=== PATIENT | female | born 1945 | race Caucasian/White ===

== ENCOUNTER → 2016-10-27 | Outpatient (CLI) | payer MEDICARE | END | disposition home or self-care (01) | LOC: CFH 07:30 | PROVIDERS: ATTEND Nurse Practitioner | DX: Z12.31 Encounter for screening mammogram for malignant neoplasm of breast (principal); Z13.820 Encounter for screening for osteoporosis; M89.9 Disorder of bone, unspecified; N95.8 Other specified menopausal and perimenopausal disorders | CPT/HCPCS: 77080; G0202 ==

== ENCOUNTER 2019-04-23 10:46 | Inpatient (IN) | payer MEDICARE ==
[~2019-04-23] VITALS: Ht 160 cm; Wt 84.4 kg
[2019-04-23] MEDS ORDERED: MORPHINE SULFATE 4 MG/ML, 1ML IVPush PRN ×2 (11:30→15:00)
[2019-04-23] MEDS ORDERED: ONDANSETRON 2MG/ML, 2ML IVPush ONE (11:30)
[2019-04-23] MEDS ORDERED: SODIUM CHLORIDE FLUSH 10ML SYR IVF ONE (11:30)
--- NOTE | 2019-04-23 11:33 | NUR ---
PT WITH C/O ABD PAIN RLQ/MID ABD. PAIN HAS BEEN PRESENT FOR 4 DAYS NOW RATED 4-5/10. PT DESCRIBES DIFFIUCULTY WITH URINATING WHICH BEGAN TODAY. PT DENIES N/V/D. NO CP, SOB. DID AMBULATE PT TO BR IN ATTEMPT TO OBTAIN UA, PT UNABLE TO PROVIDE. ERMD IN TO EVAL PT, AWAITING ORDERS
[2019-04-23] MEDS ORDERED: ONDANSETRON 2MG/ML, 2ML ONE ×2 (11:47→16:50)
[2019-04-23] MEDS ORDERED: MORPHINE SULFATE 4 MG/ML, 1ML ONE (11:48)
--- NOTE | 2019-04-23 11:52 | NUR ---
PIV INITIATED, PT MEDICATED PER MAR
[2019-04-23 11:59] LABS: BASOPHILS # (AUTO) 0.01 x10^3/uL (0-0.1); BASOPHILS % (AUTO) 0 % (0-1); EOSINOPHILS % (AUTO) 0 % (1-7); LYMPHOCYTES # (AUTO) 0.87 x10^3/uL (1-3.4); LYMPHOCYTES % (AUTO) 11 % (22-44); MD NO; MEAN CORPUSCULAR HEMOGLOBIN 30.4 pg (27.0-34.8); MEAN CORPUSCULAR HGB CONC 33.3 g/dL (32.4-35.8); MEAN CORPUSCULAR VOLUME 91.5 fL (80-100); MEAN PLATELET VOLUME 8.3 fL (7.4-10.4); MONOCYTES # (AUTO) 0.22 x10^3/uL (0.2-0.8); MONOCYTES % (AUTO) 3 % (2-9); NEUTROPHILS # (AUTO) 6.84 x10^3/uL (1.8-6.8); NEUTROPHILS % (AUTO) 86 % (42-75); PLATELET COUNT 245 x10^3/uL (130-400); RED BLOOD COUNT 5.06 x10^6/uL (3.82-5.3); RED CELL DISTRIBUTION WIDTH 13.3 % (9.6-15.2)
[2019-04-23 12:13] LABS: CHLORIDE 98 mmol/L (98-107)
[2019-04-23 12:29] LABS: ALANINE AMINOTRANSFERASE 20 U/L (12-78); ALBUMIN 3.7 g/dL (3.4-5.0); ALKALINE PHOSPHATASE 67 U/L (45-117); ANION GAP 11 mmol/L (5-15); BILIRUBIN,TOTAL 1.3 mg/dL (0.2-1.0); CALCIUM 9.2 mg/dL (8.5-10.1); CREATININE 1.67 mg/dL (0.55-1.02)
--- NOTE | 2019-04-23 12:35 | NUR ---
PT AMBULATED TO BR IN SECOND ATTEMPT TO COLLECT UA
[2019-04-23] MEDS: SODIUM CHLORIDE 0.9% 1,000 ML IV ONE ×2 (12:42→13:27)
--- NOTE | 2019-04-23 12:42 | NUR ---
BREAK RN: PT UNABLE TO VOID AFTER 2ND ATTEMPT- DR CESILIA STAFFORD, PT BACK TO [facility] A[facility]KE [facility] COMFORT[facility], RESPONDS APPROP TO [facility], NO NEEDS AT THIS TIME, CALL IGHT WITHIN REACH, PT TO CT PER DR CESILIA MENG. Addendum: 04/23/19 at 1249 by JEANNIE BREAK RN: PT UNABLE TO VOID AFTER 2ND ATTEMPT- DR CESILIA STAFFORD, PT BACK TO [facility] AWAKE & COMFORTABLE, RESPONDS APPROP TO [facility], NO NEEDS AT THIS TIME, CALL LIGHT WITHIN REACH, PT TO CT PER DR CESILIA MENG.
[2019-04-23] MEDS ORDERED: SODIUM CHLORIDE 0.9% 1,000ML IVBOLUS ONE (13:00)
--- NOTE | 2019-04-23 13:28 | NUR ---
PT MEDICATED PER MAR, VSS, NAD NOTED. PT DENIES NEEDS AT THIS TIME
[2019-04-23] MEDS ORDERED: SODIUM CHLORIDE 0.9% 1,000 ML IV ONE (13:45)
[2019-04-23] MEDS ORDERED: OMNIPAQUE 350 MG/ML, 100ML BOTTLE ONE (13:45)
--- NOTE | 2019-04-23 13:53 | NUR ---
PREPARING TO STRAIGHT CATH PT, ERMD IN TO UPDATE ON POC. PLAN FOR PT TO GO TO OR. WILL HOLD OFF ON STRAIGT CATH, BLADDER SCAN PERFORMED 174ML IN BLADDER, WILL UPDATE
[2019-04-23] MEDS ORDERED: SODIUM CHLORIDE 0.9% 1,000 ML IV SCH (14:00)
[2019-04-23] MEDS ORDERED: CEFOTETAN PMX 2GM/50ML 50 ML IVPB ONE (14:00)
--- NOTE | 2019-04-23 14:21 | NUR ---
dr johnson spoke with dr cardona
--- NOTE | 2019-04-23 14:29 | NUR ---
ADMITTING MD IN TO [facility] RETANA.
[2019-04-23] MEDS: SODIUM CHLORIDE 0.9% 1,000 ML IV SCH (14:34)
[2019-04-23] MEDS ORDERED: CEFOTETAN PMX 2GM/50ML 50 ML IV SCH (15:00)
[2019-04-23] MEDS ORDERED: PHARMACY MAY ADJ FOR RENAL FX MC PRN ×2 (15:00→18:30)
--- NOTE | 2019-04-23 15:40 | NUR ---
PT UNSURE OF MEDICATION DOSAGES, NOT ABLE TO COMPLETE MED REC
--- NOTE | 2019-04-23 16:00 | NUR ---
REPORT TO ISSUE CLERK, REPORT TO FLOOR RN RHYS
[2019-04-23] MEDS ORDERED: BUPIVACAINE/PF 0.5% ONE (16:26)
[2019-04-23] MEDS ORDERED: FENTANYL PF 250 MCG/5ML ONE (16:45)
[2019-04-23] MEDS ORDERED: ROCURONIUM 10 MG/ML,10ML ONE (16:50)
[2019-04-23] MEDS ORDERED: PROPOFOL 10 MG/ML, 20ML ONE (16:50)
[2019-04-23] MEDS ORDERED: SUGAMMADEX 200 MG/2 ML IVPush ONE (16:50)
[2019-04-23] MEDS ORDERED: DEXAMETHASONE 4 MG/ML, 1ML ONE (16:50)
[2019-04-23] MEDS ORDERED: CEFOTETAN 2 GM ONE (16:50)
[2019-04-23] MEDS ORDERED: SUCCINYLCHOLINE 20 MG/ML, 10ML ONE (16:50)
[2019-04-23] MEDS ORDERED: PROMETHAZINE 12.5 MG SUPP PR PRN (18:00)
[2019-04-23] MEDS ORDERED: LABETALOL 5MG/ML, 20ML IV PRN (18:00)
[2019-04-23] MEDS ORDERED: HALOPERIDOL 5 MG/ML IV PRN (18:00)
[2019-04-23] MEDS ORDERED: ALBUTEROL SULFATE 2.5 MG/3 ML NPPB PRN (18:00)
[2019-04-23] MEDS ORDERED: PROMETHAZINE 25 MG/ML, 1ML IV PRN (18:00)
[2019-04-23] MEDS ORDERED: ONDANSETRON 2MG/ML, 2ML IV PRN (18:00)
[2019-04-23] MEDS ORDERED: HYDROmorphone 1 MG/ML, 1ML INJ IVPush PRN (18:00)
[2019-04-23] MEDS ORDERED: OXYcodone 5 MG/5 ML ORAL.SOL UDC PO PRN (18:00)
[2019-04-23] MEDS ORDERED: ONDANSETRON ODT 8 MG PO PRN (18:00)
[2019-04-23] MEDS ORDERED: FENTANYL PF 100 MCG/2ML IV PRN (18:00)
[2019-04-23] MEDS ORDERED: MEPERIDINE/PF 25MG/ML,1ML IVPush PRN (18:00)
[2019-04-23] MEDS ORDERED: EPHEDRINE 50 MG/ML, 1ML IVPush PRN (18:00)
[2019-04-23] MEDS ORDERED: MIDAZOLAM 1 MG/ML, 2ML IV PRN (18:00)
[2019-04-23] MEDS ORDERED: hydrALAzine 20 MG/ML, 1ML IV PRN (18:00)
[2019-04-23 20:30] VITALS: BP 95/62
[2019-04-23] MEDS: PIPERACILLIN/TAZO/PMX 2.25GM 50 ML IV SCH (20:52)
[2019-04-23] MEDS: OXYcodone IR 5MG TABLET PO PRN (23:48)
[2019-04-24 01:55] VITALS: BP 88/51
[2019-04-24] MEDS: PIPERACILLIN/TAZO/PMX 2.25GM 50 ML IV SCH ×4 (02:00→21:59)
[2019-04-24] MEDS: SODIUM CHLORIDE 0.9% 1,000 ML IV SCH ×3 (02:00→21:58)
[2019-04-24 03:05] LABS: MICROSCOPIC NOT IND
[2019-04-24 03:28] LABS: CULTURE INDICATED? NO
[2019-04-24] MEDS ORDERED: SODIUM CHLORIDE 0.9%, 500ML IVBOLUS ONE (03:30)
[2019-04-24 06:18] LABS: ALBUMIN 2.1 g/dL (3.4-5.0); ANION GAP 8 mmol/L (5-15); CALCIUM 7.9 mg/dL (8.5-10.1); CHLORIDE 104 mmol/L (98-107)
[2019-04-24 06:22] LABS: BASOPHILS # (AUTO) 0.01 x10^3/uL (0-0.1); BASOPHILS % (AUTO) 0 % (0-1); EOSINOPHILS % (AUTO) 0 % (1-7); LYMPHOCYTES # (AUTO) 0.64 x10^3/uL (1-3.4); LYMPHOCYTES % (AUTO) 10 % (22-44); MD NO; MEAN CORPUSCULAR HEMOGLOBIN 30.3 pg (27.0-34.8); MEAN CORPUSCULAR HGB CONC 33.1 g/dL (32.4-35.8); MEAN CORPUSCULAR VOLUME 91.5 fL (80-100); MEAN PLATELET VOLUME 8.9 fL (7.4-10.4); MONOCYTES # (AUTO) 0.27 x10^3/uL (0.2-0.8); MONOCYTES % (AUTO) 4 % (2-9); NEUTROPHILS # (AUTO) 5.69 x10^3/uL (1.8-6.8); NEUTROPHILS % (AUTO) 86 % (42-75); PLATELET COUNT 159 x10^3/uL (130-400); RED CELL DISTRIBUTION WIDTH 13.6 % (9.6-15.2)
[2019-04-24 06:23] LABS: ALANINE AMINOTRANSFERASE 10 U/L (12-78); ALKALINE PHOSPHATASE 42 U/L (45-117); BILIRUBIN,TOTAL 0.6 mg/dL (0.2-1.0); CREATININE 0.98 mg/dL (0.55-1.02); TOTAL PROTEIN 5.6 g/dL (6.4-8.2)
[2019-04-24] MEDS ORDERED: CALCIUM GLUCONATE 4.6 MEQ in SODIUM CHLORIDE 0.9% 50 ML IV ONE (08:00)
[2019-04-24] MEDS ORDERED: POTASSIUM CHLORIDE 20 MEQ in SODIUM CHLORIDE 0.9% 250 ML IV ONE (08:00)
[2019-04-24 08:11] VITALS: BP 104/63
[2019-04-24] MEDS: MULTIVITS,STRESS FORMULA 1 TABLET PO SCH (08:58)
[2019-04-24] MEDS: ASCORBIC ACID 500 MG TABLET PO SCH ×2 (10:33→17:56)
[2019-04-24] MEDS: OXYcodone IR 5MG TABLET PO PRN ×2 (10:36→17:56)
[2019-04-24 15:09] VITALS: BP 99/63
[2019-04-24] MEDS: CHOLECALCIFEROL 400 UNITS/ML ORAL SOL PO SCH (16:30)
[2019-04-24 19:32] VITALS: BP 103/67
[2019-04-25 01:27] VITALS: BP 100/60
[2019-04-25] MEDS: PIPERACILLIN/TAZO/PMX 2.25GM 50 ML IV SCH ×3 (02:26→14:19)
[2019-04-25] MEDS: OXYcodone IR 5MG TABLET PO PRN ×2 (02:35→22:03)
[2019-04-25 06:25] LABS: BASOPHILS # (AUTO) 0.01 x10^3/uL (0-0.1); BASOPHILS % (AUTO) 0 % (0-1); EOSINOPHILS # (AUTO) 0.01 x10^3/uL (0-0.4); EOSINOPHILS % (AUTO) 0 % (1-7); LYMPHOCYTES # (AUTO) 0.98 x10^3/uL (1-3.4); LYMPHOCYTES % (AUTO) 14 % (22-44); MD NO; MEAN CORPUSCULAR HEMOGLOBIN 30.2 pg (27.0-34.8); MEAN CORPUSCULAR HGB CONC 32.9 g/dL (32.4-35.8); MEAN CORPUSCULAR VOLUME 91.7 fL (80-100); MEAN PLATELET VOLUME 8.9 fL (7.4-10.4); MONOCYTES # (AUTO) 0.42 x10^3/uL (0.2-0.8); MONOCYTES % (AUTO) 6 % (2-9); NEUTROPHILS # (AUTO) 5.56 x10^3/uL (1.8-6.8); NEUTROPHILS % (AUTO) 80 % (42-75); PLATELET COUNT 173 x10^3/uL (130-400); RED BLOOD COUNT 3.58 x10^6/uL (3.82-5.3); RED CELL DISTRIBUTION WIDTH 13.7 % (9.6-15.2)
[2019-04-25 06:26] LABS: ALBUMIN 2.1 g/dL (3.4-5.0); ANION GAP 6 mmol/L (5-15); CALCIUM 8.5 mg/dL (8.5-10.1); CHLORIDE 108 mmol/L (98-107)
[2019-04-25 06:29] LABS: CREATININE 0.62 mg/dL (0.55-1.02)
[2019-04-25 07:23] VITALS: BP 101/64
[2019-04-25] MEDS: ASCORBIC ACID 500 MG TABLET PO SCH ×2 (07:55→16:54)
[2019-04-25] MEDS: MULTIVITS,STRESS FORMULA 1 TABLET PO SCH (07:55)
[2019-04-25] MEDS: SODIUM CHLORIDE 0.9% 1,000 ML IV SCH (07:56)
[2019-04-25] MEDS ORDERED: POTASSIUM PHOSPHATE 44 MEQ in SODIUM CHLORIDE 0.9% 500 ML IV ONE (08:00)
[2019-04-25] MEDS ORDERED: POTASSIUM CHLORIDE 20 MEQ in SODIUM CHLORIDE 0.9% 250 ML IV ONE ×2 (08:00→08:08)
[2019-04-25 13:28] VITALS: BP 115/70
[2019-04-25] MEDS ORDERED: ASCO500T6 PO (16:33)
[2019-04-25] MEDS ORDERED: METR500T PO ×2 (16:33)
[2019-04-25] MEDS ORDERED: CEFU250T66 PO ×2 (16:33)
[2019-04-25] MEDS: metroNIDAZOLE 500 MG TABLET PO SCH (16:54)
[2019-04-25] MEDS: CHOLECALCIFEROL 400 UNITS/ML ORAL SOL PO SCH (16:54)
[2019-04-25 19:34] VITALS: BP 122/63
[2019-04-25] MEDS: CEFUROXIME 250 MG TABLET PO SCH (22:02)
[2019-04-26] MEDS: metroNIDAZOLE 500 MG TABLET PO SCH ×3 (01:04→16:30)
[2019-04-26 02:49] VITALS: BP 117/66
[2019-04-26] MEDS: SODIUM CHLORIDE 0.9% 1,000 ML IV SCH ×2 (04:01→12:16)
[2019-04-26 07:37] VITALS: BP 123/74
[2019-04-26] MEDS: MULTIVITS,STRESS FORMULA 1 TABLET PO SCH (07:54)
[2019-04-26] MEDS: CEFUROXIME 250 MG TABLET PO SCH ×2 (07:55→20:30)
[2019-04-26] MEDS: ASCORBIC ACID 500 MG TABLET PO SCH ×2 (07:55→16:30)
[2019-04-26] MEDS: OXYcodone IR 5MG TABLET PO PRN ×2 (12:13→20:39)
[2019-04-26 12:55] VITALS: BP 125/72
[2019-04-26] MEDS: CHOLECALCIFEROL 400 UNITS TABLET PO SCH (16:30)
[2019-04-26] MEDS: ENOXAPARIN 40 MG/0.4 ML SQ SCH (17:16)
[2019-04-26 21:17] VITALS: BP 133/84
[2019-04-27] MEDS: metroNIDAZOLE 500 MG TABLET PO SCH ×3 (00:35→17:02)
[2019-04-27 03:02] VITALS: BP 133/78
[2019-04-27 07:14] VITALS: BP 112/74
[2019-04-27] MEDS: FUROSEMIDE 20 MG/2 ML IV SCH (07:51)
[2019-04-27] MEDS: ASCORBIC ACID 500 MG TABLET PO SCH ×2 (07:51→17:02)
[2019-04-27] MEDS: CEFUROXIME 250 MG TABLET PO SCH ×2 (07:51→21:25)
[2019-04-27] MEDS: MULTIVITS,STRESS FORMULA 1 TABLET PO SCH (07:54)
[2019-04-27 08:13] LABS: ANION GAP 8 mmol/L (5-15); BASOPHILS % (AUTO) 0 % (0-1); CALCIUM 8.5 mg/dL (8.5-10.1); CHLORIDE 111 mmol/L (98-107); EOSINOPHILS # (AUTO) 0.15 x10^3/uL (0-0.4); EOSINOPHILS % (AUTO) 2 % (1-7); LYMPHOCYTES # (AUTO) 1.72 x10^3/uL (1-3.4); LYMPHOCYTES % (AUTO) 22 % (22-44); MD NO; MEAN CORPUSCULAR HEMOGLOBIN 30.1 pg (27.0-34.8); MEAN CORPUSCULAR VOLUME 91.1 fL (80-100); MEAN PLATELET VOLUME 7.8 fL (7.4-10.4); MONOCYTES # (AUTO) 0.59 x10^3/uL (0.2-0.8); MONOCYTES % (AUTO) 7 % (2-9); NEUTROPHILS # (AUTO) 5.52 x10^3/uL (1.8-6.8); NEUTROPHILS % (AUTO) 69 % (42-75); PLATELET COUNT 224 x10^3/uL (130-400); RED BLOOD COUNT 3.99 x10^6/uL (3.82-5.3); RED CELL DISTRIBUTION WIDTH 14.3 % (9.6-15.2)
[2019-04-27 08:15] LABS: CREATININE 0.54 mg/dL (0.55-1.02)
[2019-04-27 12:34] VITALS: BP 131/83
[2019-04-27] MEDS ORDERED: FUROSEMIDE 20 MG/2 ML IV ONE (14:00)
[2019-04-27] MEDS: CHOLECALCIFEROL 400 UNITS TABLET PO SCH (17:02)
[2019-04-27] MEDS: POTASSIUM CHLORIDE 20 MEQ TAB.ER.PRT PO SCH (17:02)
[2019-04-27] MEDS: ENOXAPARIN 40 MG/0.4 ML SQ SCH (17:02)
[2019-04-27 19:20] VITALS: BP 126/72
[2019-04-27] MEDS ORDERED: ACETAMINOPHEN 325 MG TABLET ONE (21:21)
[2019-04-27] MEDS: OXYcodone IR 5MG TABLET PO PRN (21:25)
[2019-04-27] MEDS ORDERED: ACETAMINOPHEN 325 MG TABLET PO PRN (21:30)
[2019-04-28 01:06] VITALS: BP 120/77
[2019-04-28] MEDS: metroNIDAZOLE 500 MG TABLET PO SCH ×2 (01:09→08:22)
[2019-04-28 05:45] LABS: ANION GAP 6 mmol/L (5-15); CALCIUM 7.8 mg/dL (8.5-10.1); CHLORIDE 107 mmol/L (98-107); CREATININE 0.53 mg/dL (0.55-1.02)
[2019-04-28 06:47] VITALS: BP 124/77
[2019-04-28] MEDS: CEFUROXIME 250 MG TABLET PO SCH (08:22)
[2019-04-28] MEDS: ASCORBIC ACID 500 MG TABLET PO SCH (08:22)
[2019-04-28] MEDS: MULTIVITS,STRESS FORMULA 1 TABLET PO SCH (08:22)
[2019-04-28] MEDS: POTASSIUM CHLORIDE 20 MEQ TAB.ER.PRT PO SCH (08:22)
[2019-04-28] MEDS: FUROSEMIDE 20 MG/2 ML IV SCH (08:23)
[2019-04-28 11:07] VITALS: BP 127/71
[2019-04-28 12:23] VITALS: BP 130/82
[2019-04-28] MEDS ORDERED: OXYC5TAB3 PO (13:24)
[2019-04-28] MEDS ORDERED: CEFU250T66 PO (13:24)
[2019-04-28] MEDS ORDERED: METR500T PO (13:24)
[2019-04-28] MEDS ORDERED: POTA20TA6 PO (13:24)
[2019-04-28] MEDS ORDERED: SENN-177 PO (13:24)
== END 2019-04-28 16:00 | disposition home or self-care (01) | DRG 341 ==
LOC: ED 14:16 → EDIP 14:55 → 4WST 19:23 → DCLOUNGE 04-28 15:47
PROVIDERS: ADMIT Internal Medicine; ATTEND Family Medicine
PROC: 0DTJ4ZZ Resection of Appendix, Percutaneous Endoscopic Approach (ICD-10-PCS; principal; 2019-04-23 16:45)
DX: K35.20 Acute appendicitis with generalized peritonitis, without abscess (principal); J96.01 Acute respiratory failure with hypoxia; N17.0 Acute kidney failure with tubular necrosis; K56.7 Ileus, unspecified; E78.5 Hyperlipidemia, unspecified; I10 Essential (primary) hypertension; I87.2 Venous insufficiency (chronic) (peripheral); E78.00 Pure hypercholesterolemia, unspecified; I25.10 Atherosclerotic heart disease of native coronary artery without angina pectoris; N95.8 Other specified menopausal and perimenopausal disorders; E86.0 Dehydration; I25.2 Old myocardial infarction; Z87.891 Personal history of nicotine dependence; Z95.5 Presence of coronary angioplasty implant and graft; Z79.899 Other long term (current) drug therapy
CPT/HCPCS: 36415; 71045; 74177; 80048; 80053; 80069; 81003; 83605; 83690; 83735; 83880; 85025; 87040; 88304; 93005; 96361; 96365; 96375; G0378; J0610; J1100; J1650; J2405; J2543; J2704; J3010; J3480; Q9967; J0330; J1940; J2270; J3490; J7030; J7040; J7050